=== PATIENT | female | born 1965 | race Caucasian/White ===

== ENCOUNTER 2021-12-29 18:20 | Emergency (ER) | payer OTHER ==
[~2021-12-29 18:20] MED LIST: ADDERALL 20 MG20 MG PO; FLUOXETINE HCL40 MG PO; GABAPENTIN300 MG PO; HYDROCHLOROTHIA25 MG PO; HYDROCODON-ACE1 EAC2 PO; INDERAL XL80 MG PO; LISINOPRIL10 MG PO; LOVENOX40 MG/0.4 SQ; MELOXICAM15 MG PO; MOBIC15 MG PO; NORCO 5-325 TA1 EACH PO; NORCO 7.5-3251 EACH PO; PERCOCET 5/325 T1 EA PO; PROZAC20 MG PO; ROBAXIN-750750 MG PO; TAPENTADOL 50 MG PO; WELLBUTRIN XL300 M1 PO
== END 2021-12-29 20:21 | disposition home or self-care (01) ==
LOC: ER1 18:20
DX: S50.01XA Contusion of right elbow, initial encounter (principal); S80.01XA Contusion of right knee, initial encounter; I10 Essential (primary) hypertension; W01.0XXA Fall on same level from slipping, tripping and stumbling without subsequent striking against object, initial encounter
CPT/HCPCS: 70450; 72100; 73070; 73560; 99284